=== PATIENT | male | born 1980 | race Caucasian/White ===

== ENCOUNTER → 2017-05-24 09:01 | Emergency (ER) | payer OTHER ==
--- NOTE | 2017-05-24 10:36 | ED ---
Laceration/Wound HPI - HPI Summary HPI Summary: 37M presents with laceration to left and right thigh. He states that last night he was bored so he decided to cut himself with a razor. He wrapped the area and went to sleep. His last tetanus was 3 years ago. He follows up a counselor. He says ever once in a while he likes to cut himself. He denies any si/hi. He denies any numbness or tingling. - History of Current Complaint Stated Complaint: LT LEG LAC Time Seen by Provider: 05/24/17 09:46 Pain Intensity: 5 PMH/Surg Hx/FS Hx/Imm Hx Endocrine/Hematology History: Denies: Hx Anticoagulant Therapy Cardiovascular History: Denies: Hx Hypertension Infectious Disease History: No Infectious Disease History: Denies: Traveled Outside the [place] in Last 30 Days - Family History Known Family History: Positive: Cardiac Disease - Social History Alcohol Use: Rare Substance Use Type: Reports: None Smoking Status (MU): Never Smoked Tobacco Review of Systems Negative: Fever Negative: Chest Pain Negative: Shortness Of Breath Positive: Other - lacerations to right and left thigh All Other Systems Reviewed And Are Negative: Yes Physical Exam Triage Information Reviewed: Yes Vital Signs On Initial Exam: Initial Vitals Temp Pulse Resp BP Pulse Ox 98.1 F 107 17 175/95 98 05/24/17 09:21 05/24/17 09:21 05/24/17 09:21 05/24/17 09:21 05/24/17 09:21 Vital Signs Reviewed: Yes Appearance: Positive: Well-Appearing Skin: Positive: Other - multiple superifical lacerations to right and left thigh. largest laceration is 5cmby 2cm on left thigh Head/Face: Positive: Normal Head/Face Inspection Eyes: Positive: Normal, Conjunctiva Clear ENT: Positive: Normal ENT inspection, Pharynx normal, TMs normal Respiratory/Lung Sounds: Positive: Clear to Auscultation, Breath Sounds Present Cardiovascular: Positive: Normal, RRR Procedures - Laceration/Wound Repair 1 Location: Other - left thigh Description: Linear Anesthesia: Local, 1.0% Length, Depth and Shape: 5cm by 2cm Betadine Prep?: Yes Irrigated w/ Saline (ccs): 100 Closure: Multilayer, [place] #__ - 7 Suture Type: Chromic Number of Sutures: 4 Layer Closure?: Yes - 4 deep sutures and then 7 lucy 2 Location: Other - right thigh Description: Irregular Length, Depth and Shape: multiple superifical lacerations that cross Irrigated w/ Saline (ccs): 100 Closure: Skin Adhesive Diagnostics - Vital Signs Vital Signs Temp Pulse Resp BP Pulse Ox 05/24/17 09:21 98.1 F 107 17 175/95 98 - Laboratory Lab Statement: Any lab studies that have been ordered have been reviewed, and results considered in the medical decision making process. Laceration Repair Course/Dx - Course Course Of Treatment: 37M presents with laceration to left and right thigh. He states that last night he was bored so he decided to cut himself with a razor. He wrapped the area and went to sleep. His last tetanus was 3 years ago. He follows up a counselor. He says ever once in a while he likes to cut himself. He denies any si/hi. left leg laceration closed with 7 lucy and 4 deep sutures placed. and then other leg placed glue as lacerations are superificial. patient came volunatry and no Hi/Si so did not get mental health exam. patient understands and agrees with plan - Differential Dx Differental Diagnoses: Abrasion, Avulsion, Laceration - Clinical Impression Provider Diagnoses: Laceration of left leg, Laceration of right lower extremity Discharge - Discharge Plan Condition: Good Disposition: HOME Patient Education Materials: Staple Care (ED), Skin Adhesive Care (ED) Referrals: [facility] [facility]YSICIAN REFERRAL [Outside] Additional Instructions: Take Tylenol or ibuprofen for pain every 6 hours Keep area clean and dry and covered for 48 hours glue will fall off on own Return to ED or primary in 10 to have lucy removed Return to ED if develop signs of infection such as fever, spreading redness, or pus.
[2017-05-24 10:46] VITALS: BP 158/95
== END | disposition home or self-care (01) ==
LOC: ED 09:01 → MERGE 09:01
DX: S71.111A Laceration without foreign body, right thigh, initial encounter (principal); S71.112A Laceration without foreign body, left thigh, initial encounter; X78.9XXA Intentional self-harm by unspecified sharp object, initial encounter; Y93.9 Activity, unspecified; Y92.9 Unspecified place or not applicable; Y99.9 Unspecified external cause status
CPT/HCPCS: 12002; 99281

== ENCOUNTER 2018-01-10 19:36 | Emergency (ER) | payer BC, OTHER ==
--- NOTE | 2018-01-10 19:59 | ED ---
Medical Screening - HPI Summary HPI Summary: 37yo M present with state police for legal blood draw. He states he has no medical complaint or injury. He denies need to see the doctor or have a medical evaluation. He denies an exam. - History of Current Complaint Chief Complaint: EDGeneral Stated Complaint: LEGAL BLOOD DRAW Time Seen by Provider: 01/10/18 19:54 PMH/Surg Hx/FS Hx/Imm Hx Previously Healthy: Yes Endocrine/Hematology History: Denies: Hx Anticoagulant Therapy Cardiovascular History: Denies: Hx Hypertension Infectious Disease History: No Infectious Disease History: Denies: Traveled Outside the [place] in Last 30 Days - Family History Known Family History: Positive: Cardiac Disease - Social History Alcohol Use: Rare Substance Use Type: Reports: None Smoking Status (MU): Never Smoked Tobacco Review of Systems - ROS Summary Review of Systems Summary: deferred All Other Systems Reviewed And Are Negative: No - Comments Additional Review of Systems Comments: n/a Physical Exam - Summary Physical Exam Summary: pt is comfortable, he is alert and oriented. He refuses exam. Vital Signs On Initial Exam: Initial Vitals Temp Pulse Resp BP Pulse Ox 37.3 C 93 14 161/104 100 01/10/18 19:43 01/10/18 19:43 01/10/18 19:43 01/10/18 19:43 01/10/18 19:43 Diagnostics - Vital Signs Vital Signs Temp Pulse Resp BP Pulse Ox 01/10/18 19:43 37.3 C 93 14 161/104 100 - Laboratory Lab Statement: Any lab studies that have been ordered have been reviewed, and results considered in the medical decision making process. Course/Dx - Course Course Of Treatment: pt in custody of state police and does not want medical evaluation. Here for legal blood draw only. - Diagnoses Provider Diagnoses: Encounter for medical screening examination Discharge - Discharge Plan Condition: Good Disposition: LAW ENFORCEMENT/COURT Referrals: No Primary Care Phys,NOPCP [Primary Care Provider] -
[2018-01-10 20:58] VITALS: BP 153/98
== END 2018-01-10 20:30 ==
LOC: ED 19:36
DX: Z04.8 Encounter for examination and observation for other specified reasons (principal)
CPT/HCPCS: 99281

== ENCOUNTER 2018-03-24 14:10 | Emergency (ER) | payer BC ==
[2018-03-24] MEDS ORDERED: Ketorolac INJ* 60 MG/2 ML VIAL IM ONE (14:36)
--- NOTE | 2018-03-24 15:31 | RAD ---
HISTORY: Fall, rib pain COMPARISONS: None VIEWS: 7, Frontal view of the chest with frontal and oblique views of the left hemithorax FINDINGS: There is a minimally displaced fracture of the left eighth rib at the costochondral junction. There is no appreciable pneumothorax. IMPRESSION: MINIMALLY DISPLACED FRACTURE OF THE LEFT EIGHTH RIB AT THE COSTOCHONDRAL JUNCTION WITHOUT APPRECIABLE PNEUMOTHORAX.
--- NOTE | 2018-03-24 16:10 | ED ---
HPI Chest Pain - HPI Summary HPI Summary: Patient is a 38-year-old male who presents emergency department for left-sided rib pain after fall that occurred last evening. Patient states he tripped in the dark at his house and landed onto a guitar case. No head injury or loss of consciousness. Patient complains of pain to his mid back that wraps around to mid chest. Denies shortness of breath, hematuria, numbness, tingling or weakness. Pain is worse with movement and deep inspiration. He has no past medical history. Symptoms are mild in severity. - History of Current Complaint Chief Complaint: EDChestWallPain Time Seen by Provider: 03/24/18 14:23 Hx Obtained From: Patient Pain Intensity: 10 - Allergy/Home Medications Allergies/Adverse Reactions: Allergies Allergy/AdvReac Type Severity Reaction Status Date / Time No Known Allergies Allergy Verified 01/10/18 19:38 Home Medications: Home Medications QUEtiapine TAB* [SEROquel TAB*] 100 mg PO BEDTIME 03/24/18 [History Confirmed ] lamoTRIgine TAB(*) [LaMICtal TAB(*)] 400 mg PO QPM 03/24/18 [History Confirmed 03/24/18] PMH/Surg Hx/FS Hx/Imm Hx Previously Healthy: Yes Endocrine/Hematology History: Denies: Hx Anticoagulant Therapy Cardiovascular History: Denies: Hx Hypertension Infectious Disease History: No Infectious Disease History: Denies: Traveled Outside the [place] in Last 30 Days - Family History Known Family History: Positive: Cardiac Disease - Social History Occupation: Employed Full-time Lives: With Family Alcohol Use: Occasionally Substance Use Type: Reports: Prescribed Smoking Status (MU): Never Smoked Tobacco Review of Systems Positive: Chest Pain Negative: Shortness Of Breath Skin: Negative Negative: Bruising Neurological: Negative Negative: Weakness, Paresthesia, Numbness All Other Systems Reviewed And Are Negative: Yes Physical Exam Triage Information Reviewed: Yes Vital Signs On Initial Exam: Initial Vitals Temp Pulse Resp BP Pulse Ox 99.2 F 111 15 158/100 100 03/24/18 14:13 03/24/18 14:13 03/24/18 14:13 03/24/18 14:13 03/24/18 14:13 Vital Signs Reviewed: Yes Appearance: Positive: Well-Appearing - Patient sitting on side of bed in no acute distress. Pain with movement. Skin: Positive: Warm, Dry Head/Face: Positive: Normal Head/Face Inspection Eyes: Positive: Normal, SORAYA Neck: Positive: Nontender Respiratory/Lung Sounds: Positive: Clear to Auscultation, Breath Sounds Present Cardiovascular: Positive: Normal, RRR Musculoskeletal: Positive: Other - Pain, patient to the left low posterior lateral rib cage. No ecchymosis or abrasion. No CVA tenderness. No midline thoracic or lumbar tenderness. Neurological: Positive: Normal, CN Intact II-III Psychiatric: Positive: Normal Diagnostics - Vital Signs Vital Signs Temp Pulse Resp BP Pulse Ox 03/24/18 14:13 99.2 F 111 15 158/100 100 - Laboratory Lab Statement: Any lab studies that have been ordered have been reviewed, and results considered in the medical decision making process. Chest Pain Course/Dx - Course Course Of Treatment: Patient presenting with rib pain after a fall from standing last evening. He is afebrile. Oxygen saturation is 100% on room air which is normal. Patient was given a dose of Toradol for pain. Ribs and chest x-ray show a minimally fracture of the eighth left rib, no penumothorax, reading per radiology. Results dissipation. Incentives barometer ordered.. Prescriptions for naproxen and Lortab sent to pharmacy. Advised patient to use incentive spirometry 10 times every hour while awake. Ice intermittently. To call the referral line to establish a PCP. Return to the ER for uncontrolled pain, fever, shortness of breath, productive cough. Patient understands and agrees with plan. - Chest Pain Differential Diagnosis/HQI/PQRI: Other: - Chest wall contusion, rib contusuion, rib fracture. - Diagnoses Provider Diagnoses: Rib fracture Discharge - Sign-Out/Discharge Documenting (check all that apply): Discharge/Admit/Transfer - Discharge Plan Condition: Good Disposition: HOME Prescriptions: Hydrocodone/Acetaminophen [Hydrocodone-Acetamin 5-325 mg] 1 each PO Q6H #12 tablet MDD 4 tablets Naproxen [Naproxen 500 mg tab] 500 mg PO Q12H #20 tablet. Patient Education Materials: How to Use an Incentive Spirometer (ED), Rib Fracture (ED) Referrals: [facility] [place] [facility]IAN REFERRAL [Outside] No Primary Care Phys,NOPCP [Primary Care Provider] - Additional Instructions: Call the referral line to establish a family doctor for follow-up Pain medication as directed Use incentives spirometer 10 times every hour you are awake Return to the ER for increased pain, fever, cough, shortness of breath - Billing Disposition and Condition Condition: GOOD Disposition: HOME
[2018-03-24 17:04] VITALS: BP 155/103
== END 2018-03-24 16:50 | disposition home or self-care (01) ==
LOC: ED 14:10
DX: S22.32XA Fracture of one rib, left side, initial encounter for closed fracture (principal); W01.198A Fall on same level from slipping, tripping and stumbling with subsequent striking against other object, initial encounter; Y93.9 Activity, unspecified; Y92.009 Unspecified place in unspecified non-institutional (private) residence as the place of occurrence of the external cause
CPT/HCPCS: 96372; 99282; J1885

== ENCOUNTER 2018-07-16 12:01 | Emergency (ER) | payer BC ==
--- NOTE | 2018-07-16 12:29 | ED ---
Psychiatric Complaint - HPI Summary HPI Summary: The pt is a 38 y/o male with a PMhx of anxiety and depression presenting to [facility] c/o self-inflicted lacerations on the bilateral wrists since 06:00 today. He reports that the self-harm is triggered by recent stress and requests stitches but denies a mental health evaluation. He denies SI/HI, sore throat, neck pain, CP, back pain, dysuria, pedal edema, bruises, abd pain. The pt denies any substance use. - History Of Current Complaint Chief Complaint: EDLacSutureRecheck Hx Obtained From: Patient Onset/Duration: Gradual Onset, Worse Since - 06:00 today Aggravating Factor(s): Recent Stress Related History: Positive For: Prior Psychiatric Issues - Depression and Anxiety Has Suicidal: Denies: Thoughts Has Homicidal: Denies: Thoughts - Allergies/Home Medications Allergies/Adverse Reactions: Allergies Allergy/AdvReac Type Severity Reaction Status Date / Time No Known Allergies Allergy Verified 07/21/18 05:51 PMH/Surg Hx/FS Hx/Imm Hx Previously Healthy: No Endocrine/Hematology History: Denies: Hx Anticoagulant Therapy Cardiovascular History: Denies: Hx Hypertension Psychiatric History: Reports: Hx Anxiety, Hx Depression Infectious Disease History: No Infectious Disease History: Denies: Traveled Outside the [place] in Last 30 Days - Family History Known Family History: Positive: Cardiac Disease - Social History Occupation: Employed Full-time Lives: Alone Alcohol Use: Occasionally Hx Substance Use: No Substance Use Type: Reports: Prescribed Smoking Status (MU): Never Smoked Tobacco Type: eCigarettes Review of Systems Negative: Fever, Chills Negative: Blurred Vision ENT: Negative - Neck pain Negative: Sore Throat Negative: Chest Pain Negative: Shortness Of Breath Negative: Abdominal Pain Negative: dysuria Negative: Edema Skin: Negative - Lacerations on bilateral wrists Negative: Bruising Negative: Headache, Weakness, Syncope Psychological: Other - Negative: Denies SI/HI All Other Systems Reviewed And Are Negative: No Physical Exam - Summary Physical Exam Summary: Appearance: Alert, conversive, nontoxic appearing Skin: Warm, dry, no mottling, no rashes, no contusions; multiple small, superficial 2.5 cm abrasions to the L and R wrist HEENT: EOMI, PERRL, moist mucous membranes Neck: No masses on the neck, supple Respiratory: Clear to auscultation, breath sounds present, no rales, no rhonchi , no wheezes Cardiovascular: RRR, pulses are symmetrical in both lower and upper extremities Abdomen: Soft, non-tender Bowel Sounds: Present Musculoskeletal: No CVA tenderness, no obvious deformity, moving all extremities in a grossly normal manner Neurological: A&Ox3, CN II-XII Intact, moving all extremities symmetrically Psychiatric: Normal affect and mood Triage Information Reviewed: Yes Vital Signs On Initial Exam: Initial Vitals Temp Pulse Resp BP Pulse Ox 98.0 F 90 16 161/98 97 07/16/18 12:11 07/16/18 12:11 07/16/18 12:11 07/16/18 12:11 07/16/18 12:11 Vital Signs Reviewed: Yes Appearance: Positive: No Pain Distress Skin: Positive: Warm Neck: Positive: Supple, Nontender Cardiovascular: Positive: Normal Musculoskeletal: Positive: Normal Neurological: Positive: Alert, Oriented to Person Place, Time, CN Intact II-III AVPU Assessment: Alert - [place] Coma Scale Best Eye Response: 4 - Spontaneous Best Motor Response: 6 - Obeys Commands Best Verbal Response: 5 - Oriented Coma Scale Total: 15 Diagnostics - Vital Signs Vital Signs Temp Pulse Resp BP Pulse Ox 07/16/18 12:11 98.0 F 90 16 161/98 97 - Laboratory Lab Statement: Any lab studies that have been ordered have been reviewed, and results considered in the medical decision making process. Course/Dx - Course Course Of Treatment: Pt has no new stressors. He works time lock expert. He has a laceration to his arm which was repaired by Caro the INSTRUMENTATION TECHNICIAN. Please refer to her note for laceration repair. Discussed care of pt with [facility] psychiatrist at 12:32. We discussed the case. He is in agreement pt can be discharged home. He did convey that pt can walk into the psychiatric clinic any time for an evaluation. The psychiatrist will let pt's therapist, Hilton, know about pt's visit to the ED. The nurse reports that the pt has an appointment with his therapist on 07/20/2018 at 13:30. I discussed this with the patient. He also knows that he can come to the ED anytime for re- evalaution and care if he has any further thoughts of self harm. - Differential Dx/Clinical Impression Provider Diagnosis: Laceration, Borderline personality disorder Discharge - Sign-Out/Discharge Documenting (check all that apply): Patient Departure - DC - Discharge Plan Condition: Stable Disposition: HOME Patient Education Materials: Laceration (ED), Borderline Personality Disorder ( DC) Referrals: No Primary Care Phys,NOPCP [Primary Care Provider] - Additional Instructions: return to the ED in 1 week for suture removal. Please keep your appt next thursday at 1:30pm with your therapist. I spoke to Dr. Leung. He said please feel free to walk in to the clinic at any time for an emergent evaluation. take all medications as previously instructed. REturn if worse or any new symptoms. - Billing Disposition and Condition Condition: STABLE Disposition: Home - Attestation Statements Document Initiated by Scribe: Yes Documenting Scribe: Sophia Monet Provider For Whom Alex is Documenting (Include Credential): Dr. Penny Strong MD Scribe Attestation: ISophia , scribed for Dr. Penny Strong MD on 07/21/18 at 0855. Scribe Documentation Reviewed: Yes Provider Attestation: The documentation as recorded by the deandreeSophia accurately reflects the service I personally performed and the decisions made by me, Dr. Penny Strong MD
--- NOTE | 2018-07-16 13:15 | PN ---
Progress Note - Progress Note Date of Service: 07/16/18 Note: laceration of right wrist 3cm by 1/2cm laceration cleaned area with 200cc saline placed lidocaine with epi in wound 1cc placed 3 suture prolene 4-0 no foreign body seen place telfa
[2018-07-16 13:19] VITALS: BP 165/96
== END 2018-07-16 13:16 | disposition home or self-care (01) ==
LOC: ED 12:01
DX: S61.512A Laceration without foreign body of left wrist, initial encounter (principal); S61.511A Laceration without foreign body of right wrist, initial encounter; F60.3 Borderline personality disorder; X78.9XXA Intentional self-harm by unspecified sharp object, initial encounter; Y92.9 Unspecified place or not applicable
CPT/HCPCS: 99282

== ENCOUNTER 2018-07-21 05:44 | Emergency (ER) | payer BC ==
[2018-07-21] MEDS ORDERED: Silver Nitrate/Potassium Nitr* 1 EA STICK TOPICAL ONE (06:21)
--- NOTE | 2018-07-21 06:21 | ED ---
Skin Complaint - HPI Summary HPI Summary: Pt presents w/ Lt wrist lac (self inflicted) via pocket knife. This knife was not especially clean (didn't sterilize prior to cutting) but was also not dirty. He admits to h/o self-injury as coping mechanism and did not intend to kill himself however he does realize this cut is deeper than others. Bleeding is not well controlled. Denies numbness, tingling, weakness. Imms are UTD. No previous h/o MRSA/staph. Currently denies SI and reports he saw someone from his mental health team yesterday. He takes lamictal and seroquel and has been faithful with his doses. - History of Current Complaint Chief Complaint: EDLacSutureRecheck Time Seen by Provider: 07/21/18 06:02 Stated Complaint: LEFT ARM LAC Hx Obtained From: Patient Pain Intensity: 0 - Allergy/Home Medications Allergies/Adverse Reactions: Allergies Allergy/AdvReac Type Severity Reaction Status Date / Time No Known Allergies Allergy Verified 07/21/18 05:51 PMH/Surg Hx/FS Hx/Imm Hx Previously Healthy: Yes Endocrine/Hematology History: Denies: Hx Anticoagulant Therapy, Hx Unexplained Bleeding Cardiovascular History: Denies: Hx Hypertension Psychiatric History: Reports: Hx Anxiety, Hx Depression, Other Psychiatric Issues/Disorders - cuts himself to cope Infectious Disease History: No Infectious Disease History: Denies: Traveled Outside the [place] in Last 30 Days - Family History Known Family History: Positive: Cardiac Disease - Social History Occupation: Employed Full-time - [employer] Lives: Alone Alcohol Use: Occasionally Hx Substance Use: No Substance Use Type: Reports: Prescribed Hx Tobacco Use: Yes Smoking Status (MU): Current Every Day Smoker Type: eCigarehardyes Review of Systems Constitutional: Negative Positive: no symptoms reported Skin: Other - lac Psychological: Other - stressed but denies SI All Other Systems Reviewed And Are Negative: Yes Physical Exam Triage Information Reviewed: Yes Vital Signs On Initial Exam: Initial Vitals Temp Pulse Resp BP Pulse Ox 97.9 F 97 18 155/97 97 07/21/18 05:46 07/21/18 05:46 07/21/18 05:46 07/21/18 05:46 07/21/18 05:46 Vital Signs Reviewed: Yes Appearance: Positive: Well-Appearing, No Pain Distress, Well-Nourished Skin: Positive: Warm, Skin Color Reflects Adequate Perfusion - lac over Lt ventral distal forearm - 4cm in length, deep (wound through to muscle), actively bleeding Head/Face: Positive: Normal Head/Face Inspection Eyes: Positive: Normal ENT: Positive: Hearing grossly normal Respiratory/Lung Sounds: Positive: Breath Sounds Present Cardiovascular: Positive: Pulses are Symmetrical in both Upper and Lower Extremities Procedures - Laceration/Wound Repair 1 Location: upper extremity - Lt forearm Description: Linear Anesthesia: Local Length, Depth and Shape: 4cm long, through tissue to muscle Betadine Prep?: Yes Irrigated w/ Saline (ccs): 100 Laceration/Wound Explored: clean Closure: Multilayer - ulnar aspect treated w/ silver nitrate d/t continuous bleeding Suture Type: Chromic, Other - ethilon Number of Sutures: 8 - 5 chromic, 2 horizontal mattress, 1 running Layer Closure?: Yes Sterile Dressing Applied?: Yes - triple anbx ointment + gauze + NANCY - hemodynamically stable Diagnostics - Vital Signs Vital Signs Temp Pulse Resp BP Pulse Ox 07/21/18 05:46 97.9 F 97 18 155/97 97 - Laboratory Lab Statement: Any lab studies that have been ordered have been reviewed, and results considered in the medical decision making process. Course/Dx - Course Course Of Treatment: Pt's lac was cleaned and closed. Although he denies SI, he is failiar w/ self-harm and this cut was quite deep in an area that could have caused more complicated/life threatening issues. Dr. Sanchez to see pt and agrees mental health eval is in order as pt was also just seen a few days ago for similar complaint. Pending eval. Update: Dr. Strong is shift change doc as of 7:00a - she is aware and agrees w/ plan. Pt will be signed out to her regarding mental health care/plan. - Diagnoses Provider Diagnoses: Laceration of forearm, left, complicated, Self-harm Discharge - Sign-Out/Discharge Documenting (check all that apply): Sign-Out Patient Signing out patient TO: Penny Strogn - Discharge Plan Condition: Stable Prescriptions: Sulfamethox/Trimethoprim DS* [Bactrim DS 800/160 TAB*] 1 tab PO BID #10 tab Patient Education Materials: Care For Your Stitches (ED), Laceration (ED) Forms: *Work Release Additional Instructions: Keep Dressing clean and dry and in place for the next 48 hours. After that time you may remove dressing, gently wash wound with soap and water, rinse well and pat dry with clean cloth. Reapply triple antibiotic ointment and clean gauze dressing. Continue this daily until sutures are removed. Call your PCP ( or [facility]) to schedule wound recheck and suture removal in 10-14 days. Complete oral antibiotics as directed. They have been sent to your [facility] pharmacy. For pain, rest, ice and elevate. You may also take ibuprofen alternating with acetaminophen as needed. * If you develop redness, swelling, streaking, purulent drainage, fevers or chills, seek medical attention sooner or return to the emergency department. - Billing Disposition and Condition Condition: STABLE
[2018-07-21] MEDS ORDERED: Silver Nitrate/Potassium Nitr* 1 EA STICK ONE (06:23)
[2018-07-21] MEDS ORDERED: Sulfamethox/Trimethoprim DS 800/160* TAB PO ONE (07:32)
--- NOTE | 2018-07-21 08:17 | ED ---
Progress - Progress Note Progress Note: Pt is a 38 y/o male who presents to the ED c/o self-inflected wound. When asked about the reason for his self-harm, he states he doesnt have a good answer. He recognizes this cut is deeper than previous cuts. Pt was here 5 days ago for the same complaint, and saw his therapist yesterday. Pt is currently undergoing a mental health evaluation. PMHx borderline personality disorder. Re-Evaluation - Re-Evaluation First Eval Re-Evaluation Time: 09:25 Change: Unchanged Comment: Pt denies any SI or new stressors. He states he doesnt know why he harmed himself. Discussed with pt the fact this is his third visit to a care provider for this same issue in 1 week, hence I strongly recommend he be evaluated by the emergency psychiatric team. Spoke to Dr. Garcia, and he will evaluation the pt with his team. Course/Dx - Course Course Of Treatment: Appearance: Alert, conversive, nontoxic appearing. Skin: Warm, dry, no mottling, no rashes, left arm wrapped, laceration repaired by SEERNA Fallon. HEENT: EOMI, PERRL, moist mucous membranes. Neck: No masses on the neck, supple. Respiratory: Clear to auscultation, breath sounds present, no rales, no rhonchi, no wheezes. Cardiovascular: RRR, pulses are symmetrical in both lower and upper extremities. Abdomen: Soft, non-tender. Bowel Sounds: Present. Musculoskeletal: No CVA tenderness, no obvious deformity, moving all extremities in a grossly normal manner. Neurological: A&Ox3, CN II-XII Intact, moving all extremities symmetrically, no focal neurologic deficit. Psychiatric : Normal affect and mood. Pt received a MHE due to self-inflicted wound and his borderline personality disorder. Dr. Garcia feels the pt is safe to be discharged. Final dx are borderline personality disorder and forearm laceration. Pt will be discharged. - Diagnoses Provider Diagnoses: Borderline personality disorder, Laceration of forearm - Provider Notifications Discussed Care Of Patient With: Tashi Garcia Time Discussed With Above Provider: 09:10 Instructed by Provider To: MD Will See In ED - Will perform MHE with his team. Spoke to Dr. Garcia at 11:25 and he feels the pt is safe for discharge. Discharge - Sign-Out/Discharge Documenting (check all that apply): Patient Departure - Discharge, Receiving Sign-Out Receiving patient FROM: Carrie Sanchez - Discharge Plan Condition: Stable Disposition: HOME Prescriptions: Sulfamethox/Trimethoprim DS* [Bactrim DS 800/160 TAB*] 1 tab PO BID #10 tab Patient Education Materials: Care For Your Stitches (ED), Laceration (ED), Nonsuicidal Self-Injury (ED) Forms: *Work Release Referrals: [facility] [Outside] Additional Instructions: Keep Dressing clean and dry and in place for the next 48 hours. After that time you may remove dressing, gently wash wound with soap and water, rinse well and pat dry with clean cloth. Reapply triple antibiotic ointment and clean gauze dressing. Continue this daily until sutures are removed. Call your PCP ( or [facility]) to schedule wound recheck and suture removal in 10-14 days. You may rest, ice and elevate for pain. You may also take ibuprofen with food as needed for pain. * If you develop redness, swelling, streaking, purulent drainage, fevers or chills, seek medical attention sooner or return to the emergency department. - Billing Disposition and Condition Condition: STABLE Disposition: Home - Attestation Statements Document Initiated by Alex: Yes Documenting Scribe: Aileen Garduno Provider For Whom Alex is Documenting (Include Credential): Penny Strong MD Scribe Attestation: Aileen Lancaster, scribed for Penny Strong MD on 07/21/18 at 1854. Scribe Documentation Reviewed: Yes Provider Attestation: The documentation as recorded by the Aileen portillo accurately reflects the service I personally performed and the decisions made by me, Penny Strong MD
[2018-07-21 11:45] VITALS: BP 157/117
== END 2018-07-21 11:43 | disposition home or self-care (01) ==
LOC: ED 05:44
DX: S51.812A Laceration without foreign body of left forearm, initial encounter (principal); X78.1XXA Intentional self-harm by knife, initial encounter; Y93.9 Activity, unspecified; Y92.9 Unspecified place or not applicable; F60.3 Borderline personality disorder; F17.210 Nicotine dependence, cigarettes, uncomplicated
CPT/HCPCS: 12002; 99284; A9270-GY

== ENCOUNTER 2019-08-12 10:30 | Emergency (ER) | payer BC ==
--- NOTE | 2019-08-12 12:09 | ED ---
Laceration/Wound HPI - HPI Summary HPI Summary: Patient is a 39-year-old male who presents emergency department for evaluations of lacerations to his right arm he sustained 2 days ago. Patient states he purposely cut his right arm with a knife 2 days ago. Patient states this was not an attempt to hurt himself and denies suicidal or homicidal ideations. Patient states he has cut himself in the past and finds it soothing. Patient denies any increased stressors in his life. Pt. states he usually cuts when he is in a good mood. He follows with an outpatient psychiatrist and counselor on a regular basis. Currently taking Seroquel and Lamictal and states he is compliant. Patient denies drug use. He admits to alcohol use a few times a week. Symptoms are mild to moderate in severity. Patient unaware of his last tetanus immunization. No current modifying factors. - History of Current Complaint Stated Complaint: RT ELBOW LAC PER PT Time Seen by Provider: 08/12/19 12:04 Hx Obtained From: Patient Pain Intensity: 0 - Allergy/Home Medications Allergies/Adverse Reactions: Allergies Allergy/AdvReac Type Severity Reaction Status Date / Time No Known Allergies Allergy Verified 08/12/19 10:31 PMH/Surg Hx/FS Hx/Imm Hx Previously Healthy: Yes Endocrine/Hematology History: Denies: Hx Anticoagulant Therapy, Hx Unexplained Bleeding Cardiovascular History: Denies: Hx Hypertension Psychiatric History: Reports: Hx Anxiety, Hx Depression, Other Psychiatric Issues/Disorders - cuts himself to cope Denies: Hx Eating Disorder, Hx of Violent Episodes Against Others Infectious Disease History: No Infectious Disease History: Denies: Traveled Outside the [place] in Last 30 Days - Family History Known Family History: Positive: Cardiac Disease - Social History Occupation: Employed Full-time Lives: Alone Alcohol Use: Occasionally Hx Substance Use: No Substance Use Type: Reports: Prescribed Hx Tobacco Use: Yes Smoking Status (MU): Current Every Day Smoker Type: Angelicigaredoug Review of Systems Positive: Other - lacerations right arm Positive: Other - lacerations to right arm Neurological: Negative Negative: Weakness, Paresthesia, Numbness Psychological: Normal All Other Systems Reviewed And Are Negative: Yes Physical Exam Triage Information Reviewed: Yes Vital Signs On Initial Exam: Initial Vitals Temp Pulse Resp BP Pulse Ox 97.9 F 114 18 163/109 98 08/12/19 10:32 08/12/19 10:32 08/12/19 10:32 08/12/19 10:32 08/12/19 10:32 Vital Signs Reviewed: Yes Appearance: Positive: Well-Appearing - Pt. sitting on chair in NAD. Good eye contact. Skin: Positive: Warm, Dry Head/Face: Positive: Normal Head/Face Inspection Eyes: Positive: Normal, EOMI Neck: Positive: Supple Musculoskeletal: Positive: Other - Good right radial pulse. Noted to the right arm on the volar aspect just distal from elbow there is a deep roughly 5 cm linear laceration with granulation tissue noted. Inferiorly there are 5 2cm more superficial lacerations. No surrounding erythema or drainage. Full ROM of arm at the wrist and elbow. Neurological: Positive: Normal, CN Intact II-III Psychiatric: Positive: Affect/Mood Appropriate Diagnostics - Vital Signs Vital Signs Temp Pulse Resp BP Pulse Ox 08/12/19 10:32 97.9 F 114 18 163/109 98 - Laboratory Lab Statement: Any lab studies that have been ordered have been reviewed, and results considered in the medical decision making process. Laceration Repair Course/Dx - Course Course Of Treatment: Pt. presenting with numerous self inflicted lacerations to right arm that occurred 48 hours ago. Tetanus updated. Explained to pt. wounds are unable to be closed due to the risk of infection since they have been open for 48 hours. Pt. strongly denies suicidal or homicidal ideations. Pt. states he did not cut self in an attempt to arm himself. Offered MHE to pt. but he declines stating he would be more comfortable talking to his own therapist. Will prophylactically place on keflex. Advised to f.u with [facility] for wound check next week. Wounds were cleaned by tech and bacitracin and sterile dressing applied. Pt. to return to ER for signs of infection or if concerened. Pt. understands and agrees with plan. - Differential Dx Differental Diagnoses: Cellulitis, Laceration, Tendon Laceration - Clinical Impression Provider Diagnoses: Arm laceration, Self-mutilation Discharge ED - Sign-Out/Discharge Documenting (check all that apply): Patient Departure Patient Received Moderate/Deep Sedation with Procedure: No - Discharge Plan Condition: Good Disposition: HOME Prescriptions: Cephalexin CAP* [Keflex CAP*] 500 mg PO BID #20 cap Patient Education Materials: Nonsuicidal Self-Injury (ED), Laceration Without Closure (ED) Referrals: [facility] [Outside] Additional Instructions: Schedule a follow up appointment with the [facility] for wound check in 3-5 days Please see your therapist as soon as possible Take antibiotic as directed Keep wounds clean dry Return to ER if symptoms change or worsen - Billing Disposition and Condition Condition: GOOD Disposition: Home
[2019-08-12] MEDS ORDERED: Tetan/Diph/Pertus SYR(Tdap)* 0.5 ML SYR(BOOSTRIX) use SYR IM ONE (12:19)
[2019-08-12] MEDS ORDERED: Bacitracin OINTMENT* 0.5% 0.5 oz TUBE TOPICAL ONE (12:19)
[2019-08-12 13:39] VITALS: BP 162/91
== END 2019-08-12 13:35 | disposition home or self-care (01) ==
LOC: ED 10:30
DX: S51.811A Laceration without foreign body of right forearm, initial encounter (principal); X78.1XXA Intentional self-harm by knife, initial encounter; Y92.9 Unspecified place or not applicable; Z23 Encounter for immunization; F17.290 Nicotine dependence, other tobacco product, uncomplicated
CPT/HCPCS: 90471; 90715; 99282; A9270-GY

== ENCOUNTER 2019-10-09 16:15 | Emergency (ER) | payer BC ==
--- NOTE | 2019-10-09 16:37 | ED ---
Back Pain - HPI Summary HPI Summary: 39-year-old male with a significant past medical history of mood disorder presents to the emergency department today with chief complaint of back pain which started 3 days ago and has been worse today. He states it is a 8 out of 10 aching pain on both sides of his lower back which is made worse with movement. He states he has no pain when he does not move. He states his pain is so bad he is unable to go to work. He states he has not taken any medication prior to arrival for alleviation of symptoms. He denies any radiculopathy, numbness or tingling, incontinence, trouble urinating or passing bowel movements, fever, relief of pain with leaning forward. Denies any trauma. - History of Current Complaint Chief Complaint: EDBackInjuryPain Stated Complaint: BACK PAIN PER PT Time Seen by Provider: 10/09/19 16:36 Hx Obtained From: Patient Onset/Duration: Gradual Onset Onset/Duration: Started Days Ago Timing: Constant Severity Initially: Moderate Severity Currently: Severe Pain Intensity: 8 Pain Scale Used: 0-10 Numeric Character: Sharp, Aching Aggravating Symptom(s): Movement, Lifting, Bending, Walking Alleviating Symptom(s): Rest Associated Signs And Symptoms: Positive: Pain with Weight Bearing. Negative: Swelling, Redness, Fever, Abdominal Pain, Bladder Incontinence, Bowel Incontinence - Allergies/Home Medications Allergies/Adverse Reactions: Allergies Allergy/AdvReac Type Severity Reaction Status Date / Time No Known Allergies Allergy Verified 10/09/19 16:24 PMH/Surg Hx/FS Hx/Imm Hx Endocrine/Hematology History: Denies: Hx Anticoagulant Therapy, Hx Unexplained Bleeding Cardiovascular History: Denies: Hx Hypertension Psychiatric History: Reports: Hx Anxiety, Hx Depression, Other Psychiatric Issues/Disorders - cuts himself to cope Denies: Hx Eating Disorder, Hx of Violent Episodes Against Others - Immunization History Date of Tetanus Vaccine: unknown Infectious Disease History: No Infectious Disease History: Denies: Traveled Outside the [place] in Last 30 Days - Family History Known Family History: Positive: Cardiac Disease - Social History Alcohol Use: Occasionally Hx Substance Use: No Substance Use Type: Reports: Prescribed Hx Tobacco Use: Yes Smoking Status (MU): Current Every Day Smoker Type: eCigarettes Review of Systems Constitutional: Negative Cardiovascular: Negative Respiratory: Negative Gastrointestinal: Negative Genitourinary: Negative Positive: Myalgia, Decreased ROM Skin: Negative Neurological: Negative Psychological: Normal All Other Systems Reviewed And Are Negative: Yes Physical Exam Triage Information Reviewed: Yes Vital Signs On Initial Exam: Initial Vitals Temp Pulse Resp BP Pulse Ox 100.0 F 120 19 149/102 97 10/09/19 16:20 10/09/19 16:20 10/09/19 16:20 10/09/19 16:20 10/09/19 16:20 Vital Signs Reviewed: Yes Appearance: Positive: Well-Appearing, Well-Nourished, Pain Distress, Thin Skin: Positive: Warm, Skin Color Reflects Adequate Perfusion Head/Face: Positive: Normal Head/Face Inspection Eyes: Positive: EOMI, SORAYA ENT: Positive: Hearing grossly normal Respiratory/Lung Sounds: Positive: Clear to Auscultation, Breath Sounds Present Cardiovascular: Positive: RRR, S1, S2 Abdomen Description: Positive: Nontender Bowel Sounds: Positive: Present Musculoskeletal: Positive: Strength/ROM Intact, Pain @ - Lower back bilateral paraspinal muscles in the lumbar spine., Other - No tenderness to palpation of the spinous process. No muscle fasciculation or significantly reproducible tenderness with palpation of the paraspinal muscles. Low back pain is elicited with straight leg raise. No evidence of radiculopathy. Neurological: Positive: Sensory/Motor Intact, Alert, Oriented to Person Place, Time, Normal Gait, Speech Normal Psychiatric: Positive: Normal AVPU Assessment: Alert Procedures - Sedation Patient Received Moderate/Deep Sedation with Procedure: No Diagnostics - Vital Signs Vital Signs Temp Pulse Resp BP Pulse Ox 10/09/19 16:20 100.0 F 120 19 149/102 97 - Laboratory Lab Statement: Any lab studies that have been ordered have been reviewed, and results considered in the medical decision making process. Back Pain Course/Dx - Course Course Of Treatment: Patient was evaluated in the emergency department today due to low back pain. The patient was seen and examined. Physical examination revealed no evidence of radiculopathy, neurological changes, other evidence of cauda equina or other pathologies including epidural abscess or meningitis. Negative Kernig's and Brudzinski's sign. He was given a lidocaine patch in the emergency department for his symptoms, and was offered toradol but declined. It was determined that no laboratory work or imaging was required for further evaluation of this patient. It is likely he has lumbar muscle strain and may manage his symptoms at home using [id number] pain medication and lidocaine patches which I have sent his pharmacy. He was informed to return to activity as tolerated and follow-up with care connections provider in next 2-3 days for further evaluation and management of his symptoms. He was informed to return to the emergency department if he develops any new or worsening symptoms. Patient agrees with this plan. - Diagnoses Differential Diagnosis/HQI/PQRI: Positive: Cauda Equina Syndrome, Compressive Cord Syndrome, Epidural Abscess, Fracture, Herniated Disc, Renal Colic, Strain, Sprain Provider Diagnoses: Lumbar strain Discharge ED - Sign-Out/Discharge Documenting (check all that apply): Patient Departure - Discharge Plan Condition: Critical Disposition: HOME Prescriptions: Lidocaine PATCH 5%* [Lidoderm 5% Patch*] 1 patch TRANSDERM DAILY #5 patch Patient Education Materials: Low Back Strain (ED) Referrals: No Primary Care Phys,NOPCP [Primary Care Provider] - [facility] [Outside] - 2 Days Additional Instructions: You were seen in the emergency department today due to back pain. It seems the cause of your pain is from low back muscle strain. For alleviation of your symptoms please follow the instructions attached to your Discharge paperwork. You may take 600 mg of ibuprofen every 6 hours for one week as needed for pain. I have also prescribed lidocaine patches which may be applied to your lower back for relief of symptoms. These patches are to be placed on for 12 hours and then removed. Use 1 patch per day. Please follow up with our care connections providers as I see do not have a primary care provider for further evaluation and management of your symptoms. Attached is information on how to reach these physicians for follow up. If you develop any new or worsening symptoms please return to the emergency Department immediately. - Billing Disposition and Condition Condition: CRITICAL Disposition: Home
[2019-10-09] MEDS ORDERED: Lidocaine PATCH 5%* 1 PATCH TRANSDERM ONE (16:52)
[2019-10-09] MEDS: Ketorolac INJ* 30 MG/ML 1 ML VIAL IM ONE ×2 (17:03→17:10)
[2019-10-09 17:10] VITALS: BP 145/92
[2019-10-09] MEDS ORDERED: Lidocaine Patch REMOVE* 1 NOTE MISC SCH (21:00)
== END 2019-10-09 17:09 | disposition home or self-care (01) ==
LOC: ED 16:15
DX: S39.012A Strain of muscle, fascia and tendon of lower back, initial encounter (principal); X58.XXXA Exposure to other specified factors, initial encounter; Y92.9 Unspecified place or not applicable; F17.290 Nicotine dependence, other tobacco product, uncomplicated
CPT/HCPCS: 99282; A9270-GY; J1885

== ENCOUNTER 2019-12-28 07:32 | Emergency (ER) | payer BC ==
[2019-12-28] MEDS ORDERED: Lidocaine 1% MPF ** 5 ML VIAL INJ ONE (08:01)
--- NOTE | 2019-12-28 08:02 | ED ---
Laceration/Wound HPI - HPI Summary HPI Summary: Pt. is a 39 y.o male who presents emergency department for laceration to his left hand that occurred just prior to arrival. 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 Unaware of last tetanus immunization. Symptoms are mild in severity. No current modifying factors. - History of Current Complaint Stated Complaint: LACERATION ON RIGHT ARM PER PT Time Seen by Provider: 12/28/19 07:44 Hx Obtained From: Patient Pain Intensity: 0 - Allergy/Home Medications Allergies/Adverse Reactions: Allergies Allergy/AdvReac Type Severity Reaction Status Date / Time No Known Allergies Allergy Verified 12/28/19 07:43 PMH/Surg Hx/FS Hx/Imm Hx Previously Healthy: Yes Endocrine/Hematology History: Denies: Hx Anticoagulant Therapy, Hx Unexplained Bleeding Cardiovascular History: Denies: Hx Hypertension Psychiatric History: Reports: Hx Anxiety, Hx Depression, Other Psychiatric Issues/Disorders - cuts himself to cope Denies: Hx Eating Disorder, Hx of Violent Episodes Against Others - Immunization History Date of Tetanus Vaccine: unknown Infectious Disease History: No Infectious Disease History: Denies: Traveled Outside the [place] in Last 30 Days - Family History Known Family History: Positive: Cardiac Disease - Social History Alcohol Use: Occasionally Hx Substance Use: No Substance Use Type: Reports: Prescribed Hx Tobacco Use: Yes Smoking Status (MU): Current Every Day Smoker Type: eCigarettes Review of Systems Positive: Other - laceration left hand Neurological: Negative Negative: Weakness, Paresthesia, Numbness All Other Systems Reviewed And Are Negative: Yes Physical Exam Triage Information Reviewed: Yes Vital Signs On Initial Exam: Initial Vitals Temp Pulse Resp BP Pulse Ox 98.6 F 113 17 166/117 97 12/28/19 07:33 12/28/19 07:33 12/28/19 07:33 12/28/19 07:33 12/28/19 07:33 Vital Signs Reviewed: Yes Appearance: Positive: Well-Appearing - Patient sitting on bed in no acute distress. Skin: Positive: Warm, Dry Head/Face: Positive: Normal Head/Face Inspection Eyes: Positive: Normal, EOMI Neck: Positive: Supple Musculoskeletal: Positive: Other - 2 centimeter laceration noted to the palmar aspect of the left hand over thenar eminence. Full range of motion of the digits with flexion and extension. No bony tenderness. Minimal active bleeding. Neurological: Positive: Normal, CN Intact II-III Psychiatric: Positive: Affect/Mood Appropriate Procedures - Sedation Patient Received Moderate/Deep Sedation with Procedure: No - Laceration/Wound Repair 1 Location: upper extremity - left hand Description: Linear Anesthesia: Local, 1.0%, Lido Length, Depth and Shape: 2cm Betadine Prep?: No - hibiclens Irrigated w/ Saline (ccs): 200 Closure: Single Layer Suture Type: Nylon Number of Sutures: 4 Layer Closure?: No Sterile Dressing Applied?: Yes Diagnostics - Vital Signs Vital Signs Temp Pulse Resp BP Pulse Ox 12/28/19 07:33 98.6 F 113 17 166/117 97 - Laboratory Lab Statement: Any lab studies that have been ordered have been reviewed, and results considered in the medical decision making process. Laceration Repair Course/Dx - Course Course Of Treatment: Pt. presenting for simple hand laceration that was repaired as noted above. Tetanus updated. Suture removal in 7-10 days. To keep wound clean and dry. Will return for redness, swellng, drainage from suture site. P.t understands and agrees with plan. - Differential Dx Differental Diagnoses: Foreign Body, Laceration, Tendon Laceration - Clinical Impression Provider Diagnoses: Hand laceration Discharge ED - Sign-Out/Discharge Documenting (check all that apply): Patient Departure - Discharge Plan Condition: Improved Disposition: HOME Prescriptions: Cephalexin CAP* [Keflex CAP*] 500 mg PO BID #20 cap Patient Education Materials: Care For Your Stitches (ED), Nonsuicidal Self- Injury (ED) Referrals: [facility] [Outside] Madhu IGLESIAS,Javi Ireland [Medical Doctor] - Additional Instructions: Please call your psychiatrist today to schedule an appointment as soon as possible Suture removal in 10-14 days Continue home medications as directed Keep wound clean and dry Take antibiotic as directed Return to ER for redness, swelling, drainage from wound Return to ER for suicidal thoughts or if you feel unsafe at home. - Billing Disposition and Condition Condition: IMPROVED Disposition: Home
--- OUTSIDE RECORDS SUMMARY | 2019-12-28 08:38 | XMS REPORT ---
:1980 Author Organization [facility] Care Team Providers Name Role Phone Augustina Lincoln Primary Care Physician Unavailable Allergies, Adverse Reactions, Alerts Allergy Code CodeSystem Reaction Severity Criticality Status Start Substance Date Moderate Medications Medication Medication Medication Start Stop Route Dose Status Fill Code CodeSystem Date Date Instructions RxNorm Problems Problem Name Code CodeSystem Alternate Alternate Start End Status Narrative Code CodeSystem Date Date Bipolar 48061228 SNOMED-CT Active affective 3-22 disorder, unspecified Bipolar [id number] SNOMED-CT Active affective 3-22 disorder, unspecified Relevant diagnostic tests/laboratory data Narrative No Information Procedures Procedure Code CodeSystem Target Date of Status Service Device Device Device Name Site Procedure Delivery Code Name UID Location Psychotherap 236727 SNOMED-CT () 2019-05-05 complete Mental y, 45 04 d Health- minutes with [facility] patient [address], [id number] Office [place] [id number] SNOMED-CT () 2019-09-23 complete Mental other 7 d Health- outpatient [facility] visit for [address] [id number] patient, [phone] which requires at least 2 of these 3 collier components: An expanded problem focused history; An expanded problem focused examination; Medical decision making of low SNOMED-CT () 2019-10-06 complete Mental d Health- [address], [id number] [id number] Office or [id number] SNOMED-CT () 2019-10-13 complete Mental other 7 d Health- outpatient [facility] visit for [address] [id number] patient, [phone] which requires at least 2 of these 3 collier components: An expanded problem focused history; An expanded problem focused examination; Medical decision making of low SNOMED-CT () 2019-10-28 complete Mental [facility] [address] [place], [place], [id number] [phone] Encounters/Encounter Diagnoses Encounter Name Encounter Diagnosis Diagnosis Diagnosis Date of Service Code Code Name CodeSystem Diagnosis Delivery Location Psychotherapy - [id number] Bipolar SNOMED-CT 2019-10-28 Behavioral Individual 30 affective Health min disorder, [facility] [address] [place], [place], [phone] Vital Signs No Information Social History Element Description Description Start End Code CodeSystem AdditionalInfo Date Date SexAssignedAtBirth Male 1979-0 M AdministrativeGender 4-30 Hospital Discharge Instructions Reason For Referral Medical Equipment FDA Assessments
--- OUTSIDE RECORDS SUMMARY | 2019-12-28 08:38 | XMS REPORT ---
:1980 Author Organization [facility] Care Team Providers Name Role Phone PAULINE LINCOLN Primary Care Physician Unavailable Allergies, Adverse Reactions, Alerts Allergy Code CodeSystem Reaction Severity Criticality Status Start Substance Date Moderate Medications Medication Medication Medication Start Stop Route Dose Status Fill Code CodeSystem Date Date Instructions RxNorm Problems Problem Name Code CodeSystem Alternate Alternate Start End Status Narrative Code CodeSystem Date Date Bipolar 41789364 SNOMED-CT Active affective 3-22 disorder, unspecified Bipolar [id number] SNOMED-CT Active affective 3-22 disorder, unspecified Relevant diagnostic tests/laboratory data Narrative No Information Procedures Procedure Code CodeSystem Target Date of Status Service Device Device Device Name Site Procedure Delivery Code Name UID Location SNOMED-CT () 2019-10-28 complete Mental d Health- [address], [id number] Psychotherap [id number] SNOMED-CT () 2019-05-05 complete Mental y, 45 04 d Health- minutes with [facility] patient [address], [id number] [id number] Office [place] [id number] SNOMED-CT () 2019-09-23 complete Mental other 7 d Health- outpatient [facility] visit for [address] [id number] patient, [phone] which requires at least 2 of these 3 collier components: An expanded problem focused history; An expanded problem focused examination; Medical decision making of low Office or [id number] SNOMED-CT () 2019-10-13 complete Mental other 7 d Health- outpatient [facility] visit for [address] [id number] patient, [phone] which requires at least 2 of these 3 collier components: An expanded problem focused history; An expanded problem focused examination; Medical decision making of low SNOMED-CT () 2019-10-06 complete Mental d Health- [address], [place], [place], [id number] [phone] Office or [id number] SNOMED-CT () 2019-12-07 complete Mental other 6 d Health- outpatient [facility] visit for [address], management [place], of an [facility] established [id number] patient, [phone] which requires at least 2 of these 3 collier components: A problem focused history; A problem focused examination; Straightforw joanna medical decision making. Counselin Encounters/Encounter Diagnoses Encounter Name Encounter Diagnosis Diagnosis Diagnosis Date of Service Code Code Name CodeSystem Diagnosis Delivery Location Psychotherapy - [id number] Bipolar SNOMED-CT 2019-12-14 Behavioral Individual 30 affective Health min disorder, Clinic , , unspecified , Vital Signs No Information Social History Element Description Description Start End Code CodeSystem AdditionalInfo Date Date SexAssignedAtBirth Male 1980-0 M AdministrativeGender 4-30 Hospital Discharge Instructions Reason For Referral Medical Equipment FDA Assessments
--- OUTSIDE RECORDS SUMMARY | 2019-12-28 08:38 | XMS REPORT ---
:1980 Author Organization [facility] Care Team Providers Name Role Phone Augustina Lincoln Primary Care Physician Unavailable Allergies, Adverse Reactions, Alerts Allergy Code CodeSystem Reaction Severity Criticality Status Start Substance Date Moderate Medications Medication Medication Medication Start Stop Route Dose Status Fill Code CodeSystem Date Date Instructions RxNorm Problems Problem Name Code CodeSystem Alternate Alternate Start End Status Narrative Code CodeSystem Date Date Bipolar 62585660 SNOMED-CT Active affective 3-22 disorder, unspecified Bipolar 22462353 SNOMED-CT Active affective 3-22 disorder, unspecified Relevant diagnostic tests/laboratory data Narrative No Information Procedures Procedure Code CodeSystem Target Date of Status Service Device Device Device Name Site Procedure Delivery Code Name UID Location Psychotherap [id number] SNOMED-CT () 2019-05-05 complete Mental y, 45 04 d Health- minutes with [facility] patient [address], [phone] Office or [id number] SNOMED-CT () 2019-09-23 complete Mental other 7 d Health- outpatient [facility] visit for [address] [id number] patient, [phone] which requires at least 2 of these 3 collier components: An expanded problem focused history; An expanded problem focused examination; Medical decision making of [facility] Office or [id number] SNOMED-CT () 2019-10-13 complete Mental other 7 d Health- outpatient [facility] visit for [address] [id number] patient, [phone] which requires at least 2 of these 3 collier components: An expanded problem focused history; An expanded problem focused examination; Medical decision making of [facility] SNOMED-CT () 2019-10-06 complete Mental d Health- [address], [phone] Encounters/Encounter Diagnoses Encounter Name Encounter Diagnosis Diagnosis Diagnosis Date of Service Code Code Name CodeSystem Diagnosis Delivery Location Established [id number] Bipolar SNOMED-CT 2019-10-13 Behavioral patient 15-29 affective Health minutes disorder, Clinic [address] unspecified [place], [place], [phone] Vital Signs No Information Social History Element Description Description Start End Code CodeSystem AdditionalInfo Date Date SexAssignedAtBirth Male 1980-0 M AdministrativeGender 4-30 Hospital Discharge Instructions Reason For Referral Medical Equipment FDA Assessments
[2019-12-28 09:24] VITALS: BP 163/111
--- NOTE | 2019-12-28 11:22 | ED ---
Laceration/Wound HPI - HPI Summary HPI Summary: Patient is a 39-year-old male who presents emergency department for a self- inflicted laceration to left arm that occurred 12 hours ago. Patient is a history of anxiety and depression and follows with psychiatrist on a regular basis, Dr. Leung. Pt. denies SI or HI. Pt. states he cut right wrist with a clean knife. States he cut deeper than expected. When asked why he cut himself he states "it's hard to explain." Pt. states cutting self helps relieve stress. Pt. has been seen in ED in the past for similar episodes. Sxs are mild-moderate in severity. Pt. states he see therapist/pscyh on a regular basis and they are aware of cutting. He has been taking his medications as directed. No current modifying factors. Pt. notes that bleeding would not stop and that's why he presents today. Last tetanus was last year. - History of Current Complaint Stated Complaint: LACERATION ON RIGHT ARM PER PT Time Seen by Provider: 12/28/19 07:44 Hx Obtained From: Patient Pain Intensity: 0 Pain Scale Used: 0-10 Numeric - Allergy/Home Medications Allergies/Adverse Reactions: Allergies Allergy/AdvReac Type Severity Reaction Status Date / Time No Known Allergies Allergy Verified 12/28/19 07:43 PMH/Surg Hx/FS Hx/Imm Hx Previously Healthy: Yes Endocrine/Hematology History: Denies: Hx Anticoagulant Therapy, Hx Unexplained Bleeding Cardiovascular History: Denies: Hx Hypertension Psychiatric History: Reports: Hx Anxiety, Hx Depression, Other Psychiatric Issues/Disorders - cuts himself to cope Denies: Hx Eating Disorder, Hx of Violent Episodes Against Others - Immunization History Date of Tetanus Vaccine: unknown Infectious Disease History: No Infectious Disease History: Denies: Traveled Outside the [place] in Last 30 Days - Family History Known Family History: Positive: Cardiac Disease, Non-Contributory - Social History Occupation: Employed Full-time Lives: Dormitory/Roommates Alcohol Use: Occasionally Hx Substance Use: No Substance Use Type: Reports: Prescribed Hx Tobacco Use: Yes Smoking Status (MU): Current Every Day Smoker Type: eCigarettes Review of Systems Positive: Other - laceration right wrist Neurological: Negative Negative: Weakness, Paresthesia, Numbness Positive: Anxious, Depressed, Other - Denies SI All Other Systems Reviewed And Are Negative: Yes Physical Exam Triage Information Reviewed: Yes Vital Signs On Initial Exam: Initial Vitals Temp Pulse Resp BP Pulse Ox 98.6 F 113 17 166/117 97 12/28/19 07:33 12/28/19 07:33 12/28/19 07:33 12/28/19 07:33 12/28/19 07:33 Vital Signs Reviewed: Yes Appearance: Positive: Well-Appearing - Patient sitting on bed in no acute distress. Blood soaked bandage noted to right wrist. Skin: Positive: Warm, Dry Head/Face: Positive: Normal Head/Face Inspection Eyes: Positive: Normal, EOMI Neck: Positive: Supple Musculoskeletal: Positive: Other - Roughly 6cm horizontal laceration noted to the palmar aspect of right distal forearm. Full ROM of digits and wrist. +2 radial and ulnar pulses. Neurological: Positive: Normal, CN Intact II-III Psychiatric: Positive: Affect/Mood Appropriate Procedures - Sedation Patient Received Moderate/Deep Sedation with Procedure: No - Laceration/Wound Repair 1 Location: upper extremity - right wrist Description: Linear Anesthesia: Local, 1.0%, Lido Length, Depth and Shape: 6cm Betadine Prep?: No - hibiclens Irrigated w/ Saline (ccs): 200 Closure: Single Layer Suture Type: Nylon Number of Sutures: 9 Layer Closure?: No Sterile Dressing Applied?: Yes Diagnostics - Vital Signs Vital Signs Temp Pulse Resp BP Pulse Ox 12/28/19 09:23 98.7 F 104 16 163/111 98 12/28/19 07:33 98.6 F 113 17 166/117 97 - Laboratory Lab Statement: Any lab studies that have been ordered have been reviewed, and results considered in the medical decision making process. Laceration Repair Course/Dx - Course Course Of Treatment: Pt. presenting for self inflicted laceration to right wrist. Pt. denies this was a suicidal attempt and denies thoughts to harm self. Pt. notes he cuts to relieve stress. Pt. offered [facility] today but declines and states he would rather fu with his own psychiatrist. Laceration closed as noted above. Case discussed with Dr. Stein as well. Pt. prophylactically placed on keflex. Pt. to call his pscyhiatrist today for close f.u. To return for signs of infection or thoughts of SI or if concerned. Pt .understands and agrees with plan. - Differential Dx Differental Diagnoses: Foreign Body, Laceration, Tendon Laceration - Clinical Impression Provider Diagnoses: Arm laceration, Self-mutilation Discharge ED - Sign-Out/Discharge Documenting (check all that apply): Patient Departure - Discharge Plan Condition: Improved Disposition: HOME Prescriptions: Cephalexin CAP* [Keflex CAP*] 500 mg PO BID #20 cap Patient Education Materials: Care For Your Stitches (ED), Nonsuicidal Self- Injury (ED) Referrals: [facility] [Outside] Madhu IGLESIAS,Javi Ireland [Medical Doctor] - Additional Instructions: Please call your psychiatrist today to schedule an appointment as soon as possible Suture removal in 10-14 days Continue home medications as directed Keep wound clean and dry Take antibiotic as directed Return to ER for redness, swelling, drainage from wound Return to ER for suicidal thoughts or if you feel unsafe at home. - Billing Disposition and Condition Condition: IMPROVED Disposition: Home
== END 2019-12-28 09:23 | disposition home or self-care (01) ==
LOC: ED 07:32
DX: S61.511A Laceration without foreign body of right wrist, initial encounter (principal); Z91.5 Personal history of self-harm; W26.0XXA Contact with knife, initial encounter; Y92.9 Unspecified place or not applicable; F17.290 Nicotine dependence, other tobacco product, uncomplicated; F41.9 Anxiety disorder, unspecified; F32.9 Major depressive disorder, single episode, unspecified
CPT/HCPCS: 12001; 99282